=== PATIENT | female | born 1965 | race Caucasian/White ===

== ENCOUNTER 2022-07-08 05:54 | Day surgery (SDC) | payer OTHER ==
[~2022-07-08] VITALS: Ht 154.9 cm; Wt 69.4 kg
[2022-07-08] MEDS ORDERED: fentaNYL citrate 0.05 MG/ML VIAL ONE (07:19)
[2022-07-08] MEDS ORDERED: LIDOCAINE 2% 100 MG/5 ML UJET TP ONE (07:20)
[2022-07-08] MEDS ORDERED: MIDAZOLAM 2 MG/2 ML VIAL ONE (07:20)
[2022-07-08] MEDS ORDERED: KETOROLAC 60 MG/2 ML VIAL IM ONE (07:39)
== END 2022-07-08 08:39 | disposition home or self-care (01) ==
LOC: MDS 05:54 → MMU 05:55 → MDS 08:39
PROVIDERS: ATTEND Internal Medicine Gastroenterology
DX: Z12.11 Encounter for screening for malignant neoplasm of colon (principal); K63.5 Polyp of colon; K21.9 Gastro-esophageal reflux disease without esophagitis; K29.70 Gastritis, unspecified, without bleeding; K59.00 Constipation, unspecified; I10 Essential (primary) hypertension; Z79.899 Other long term (current) drug therapy; Z20.822 Contact with and (suspected) exposure to COVID-19
CPT/HCPCS: 36415; 86677; J1885; J2250; J3010